=== PATIENT | male | born 1970 | race Caucasian/White ===

== ENCOUNTER → 2025-07-18 | Outpatient (CLI) | payer MEDICARE | END | disposition home or self-care (01) | LOC: RAD 10:44 | PROVIDERS: ATTEND Orthopaedic Surgery | DX: M16.0 Bilateral primary osteoarthritis of hip (principal); M85.88 Other specified disorders of bone density and structure, other site; M43.6 Torticollis ==

== ENCOUNTER → 2025-07-23 | Outpatient (CLI) | payer MEDICARE ==
[2025-07-23 12:13] LABS: BASO # 0.1 10*3/uL (0.0-0.1); BASO % 0.5 % (0.0-1.0); EOS # 0.4 10*3/uL (0.0-0.4); EOS % 4.3 % (1.0-4.0); MEAN CELL VOLUME 104.1 fl (80.0-94.0); MEAN CORPUSCULAR HGB 33.5 pg (27.0-31.0); MEAN PLATELET VOLUME 9.2 fl (9.6-12.3); MONO # 0.7 10*3/uL (0.1-1.0); MONO % 6.5 % (3.0-9.0); NEUT # 6.9 10*3/uL (2.3-7.9); NEUT % 67.1 % (47.0-73.0); NUCLEATED RED BLOOD CELL 0.0 % (0.0-0.0); NUCLEATED RED BLOOD CELL 0.0 10*3/uL (0.0-0.0); PLATELET COUNT AUTOMATED 378 10*3/uL (130-400); RED CELL DISTRI WIDTH 14.9 % (0-14.5)
[2025-07-23 12:37] LABS: BUN 15 mg/dl (9-23); LDL CHOLESTEROL 171 mg/dL (9-159); SGPT/ALT 109 U/L (5-49)
[2025-07-23 13:13] LABS: FREE T4 1.27 ng/dl (0.89-1.76)
[2025-07-24 04:06] LABS: HEMOGOLBIN A1C 4.4 % (4.8-5.6)
== END | disposition home or self-care (01) ==
LOC: LAB 01:29 → RESCLI 01:29
PROVIDERS: ATTEND Student in an Organized Health Care Education/Training Program
DX: S72.009A Fracture of unspecified part of neck of unspecified femur, initial encounter for closed fracture (principal); S12.9XXA Fracture of neck, unspecified, initial encounter; I73.9 Peripheral vascular disease, unspecified; F17.200 Nicotine dependence, unspecified, uncomplicated; I87.8 Other specified disorders of veins; R63.8 Other symptoms and signs concerning food and fluid intake; Z18.9 Retained foreign body fragments, unspecified material; X58.XXXA Exposure to other specified factors, initial encounter; Y93.89 Activity, other specified; Y92.89 Other specified places as the place of occurrence of the external cause; Y99.8 Other external cause status

== ENCOUNTER → 2025-08-13 | Outpatient (CLI) | payer MEDICARE ==
[2025-08-13 13:52] LABS: BUN 11 mg/dl (9-23); GAMMA GLUTAMYL TRANSFERASE 479 U/L (0-73); SGPT/ALT 132 U/L (5-49)
== END | disposition home or self-care (01) ==
LOC: RESCLI 01:37 → LAB 01:37 → RESCLI 09:00 → CT 09:00 → WOUNDCARE 09:00 → US 09:30
PROVIDERS: ATTEND Student in an Organized Health Care Education/Training Program
DX: S72.009A Fracture of unspecified part of neck of unspecified femur, initial encounter for closed fracture (principal); K75.89 Other specified inflammatory liver diseases; Z12.2 Encounter for screening for malignant neoplasm of respiratory organs; I73.9 Peripheral vascular disease, unspecified; R89.9 Unspecified abnormal finding in specimens from other organs, systems and tissues; R63.4 Abnormal weight loss; R91.1 Solitary pulmonary nodule; J43.9 Emphysema, unspecified; R16.1 Splenomegaly, not elsewhere classified; K86.89 Other specified diseases of pancreas; R60.0 Localized edema; F17.200 Nicotine dependence, unspecified, uncomplicated; Z79.899 Other long term (current) drug therapy

== ENCOUNTER → 2025-08-17 | Outpatient (CLI) | payer MEDICARE | END | disposition home or self-care (01) | LOC: MRI 11:00 | DX: K75.89 Other specified inflammatory liver diseases (principal) ==

== ENCOUNTER → 2025-08-20 | Outpatient (CLI) | payer MEDICARE ==
[2025-08-20 12:57] LABS: BUN 8 mg/dl (9-23); SGPT/ALT 123 U/L (5-49)
== END | disposition home or self-care (01) ==
LOC: RESCLI → LAB 00:40 → RESCLI 00:40
PROVIDERS: ATTEND Internal Medicine
DX: N40.0 Benign prostatic hyperplasia without lower urinary tract symptoms (principal); K75.89 Other specified inflammatory liver diseases